=== PATIENT | female | born 1950 | race Caucasian/White ===

== ENCOUNTER → 2020-01-26 | Outpatient (CLI) | payer OTHER | END | disposition home or self-care (01) | LOC: CFH 10:05 | PROVIDERS: ATTEND Internal Medicine | DX: Z12.31 Encounter for screening mammogram for malignant neoplasm of breast (principal); M85.88 Other specified disorders of bone density and structure, other site; N95.8 Other specified menopausal and perimenopausal disorders | CPT/HCPCS: 76641; 77067; 77080 ==

== ENCOUNTER → 2021-01-30 | Outpatient (CLI) | payer OTHER | END | disposition home or self-care (01) | LOC: CFH 11:46 | PROVIDERS: ATTEND Internal Medicine | DX: Z12.31 Encounter for screening mammogram for malignant neoplasm of breast (principal); Z12.39 Encounter for other screening for malignant neoplasm of breast | CPT/HCPCS: 76641; 77063; 77067 ==

== ENCOUNTER 2021-02-18 15:02 | Inpatient (IN) | payer OTHER, MEDICARE ==
[~2021-02-18] VITALS: Ht 154.9 cm; Wt 52.2 kg
--- NOTE | 2021-02-18 15:36 | NUR ---
PT WALKED BACK FROM TRIAGE WITH CHIEF COMPLAINT OF RLQ ABD PAIN FOR FEW DAYS, WITH N/V.
[2021-02-18] MEDS ORDERED: SODIUM CHLORIDE FLUSH 10ML SYR IVF ONE (16:00)
[2021-02-18] MEDS ORDERED: SODIUM CHLORIDE 0.9% 1,000 ML IV ONE (16:00)
[2021-02-18 16:28] LABS: BASOPHILS % (AUTO) 1 % (0-1); EOSINOPHILS % (AUTO) 0 % (1-7); LYMPHOCYTES % (AUTO) 10 % (22-44); MEAN CORPUSCULAR HEMOGLOBIN 29.4 pg (27.0-34.8); MEAN CORPUSCULAR HGB CONC 33.3 g/dL (32.4-35.8); MEAN PLATELET VOLUME 8.8 fL (7.4-10.4); MONOCYTES % (AUTO) 4 % (2-9); NEUTROPHILS % (AUTO) 85 % (42-75); PLATELET COUNT 234 x10^3/uL (130-400); RED BLOOD COUNT 4.99 x10^6/uL (3.82-5.3)
[2021-02-18 16:32] LABS: MICROSCOPIC INDICATED
[2021-02-18 16:38] LABS: ALANINE AMINOTRANSFERASE 21 U/L (12-78); ALBUMIN 4.3 g/dL (3.4-5.0); ANION GAP 5 mmol/L (5-15); CALCIUM 9.4 mg/dL (8.5-10.1); CHLORIDE 104 mmol/L (98-107); CREATININE 0.93 mg/dL (0.55-1.02)
[2021-02-18 16:40] LABS: ALKALINE PHOSPHATASE 80 U/L (45-117); BILIRUBIN,TOTAL 0.5 mg/dL (0.2-1.0); TOTAL PROTEIN 7.2 g/dL (6.4-8.2)
[2021-02-18] MEDS ORDERED: OMNIPAQUE 350 MG/ML, 100ML BOTTLE ONE (17:09)
--- NOTE | 2021-02-18 17:13 | NUR ---
PT BACK FROM CT, STEADY AMBULATION TO BATHROOM.
[2021-02-18] MEDS ORDERED: KETOROLAC 30 MG/1 ML ONE (17:45)
[2021-02-18] MEDS ORDERED: MORPHINE SULFATE 4 MG/ML, 1ML ONE (17:46)
[2021-02-18] MEDS ORDERED: ONDANSETRON 2MG/ML, 2ML ONE (17:46)
[2021-02-18] MEDS ORDERED: ONDANSETRON 2MG/ML, 2ML IVPush ONE (18:00)
[2021-02-18] MEDS ORDERED: KETOROLAC 30 MG/1 ML IVPush ONE (18:00)
[2021-02-18] MEDS ORDERED: MORPHINE SULFATE 4 MG/ML, 1ML IVPush PRN (18:00)
[2021-02-18] MEDS ORDERED: CARB25PO PO (18:31)
--- NOTE | 2021-02-18 19:00 | NUR ---
[facility] AT BEDSIDE
--- NOTE | 2021-02-18 19:26 | NUR ---
PT RESTING IN BED
[2021-02-18] MEDS ORDERED: HYDROcodone/APAP 5/325 TABLET PO PRN (19:30)
[2021-02-18] MEDS ORDERED: BISACODYL 10 MG SUPP PR PRN (19:30)
[2021-02-18] MEDS ORDERED: morphine SULFATE 10 MG/ML, 1ML IVPush PRN (19:30)
[2021-02-18] MEDS ORDERED: hydrALAzine 20 MG/ML, 1ML IVPush PRN (19:30)
[2021-02-18] MEDS ORDERED: ENALAPRILAT 1.25 MG/ML, 2ML IVPush PRN (19:30)
[2021-02-18] MEDS ORDERED: ACETAMINOPHEN 325 MG TABLET PO PRN (19:30)
[2021-02-18] MEDS ORDERED: ONDANSETRON ODT 4 MG PO PRN (19:30)
[2021-02-18] MEDS ORDERED: KETOROLAC 30 MG/1 ML IV PRN (19:30)
[2021-02-18] MEDS ORDERED: ONDANSETRON 2MG/ML, 2ML IVPush PRN (19:30)
[2021-02-18] MEDS ORDERED: POLYETHYLENE GLYCOL 17 GM PACKET PO PRN (19:30)
--- NOTE | 2021-02-18 19:38 | NUR ---
REPORT TO AYDEN BURGESS
[2021-02-18 20:55] VITALS: BP 119/67
[2021-02-18] MEDS ORDERED: CARBAMAZEPINE 100 MG/5 ML PO SCH (21:00)
[2021-02-18] MEDS: LACTATED RINGERS 1,000 ML IV SCH (21:16)
[2021-02-18] MEDS: CARBAMAZEPINE 100 MG TAB.CHEW PO SCH (21:36)
[2021-02-19 01:20] VITALS: BP 109/74
[2021-02-19 05:44] LABS: BASOPHILS % (AUTO) 1 % (0-1); EOSINOPHILS % (AUTO) 1 % (1-7); LYMPHOCYTES % (AUTO) 32 % (22-44); MEAN CORPUSCULAR HEMOGLOBIN 29.5 pg (27.0-34.8); MEAN CORPUSCULAR HGB CONC 33.8 g/dL (32.4-35.8); MEAN PLATELET VOLUME 9.2 fL (7.4-10.4); MONOCYTES % (AUTO) 7 % (2-9); NEUTROPHILS % (AUTO) 60 % (42-75); PLATELET COUNT 181 x10^3/uL (130-400); RED BLOOD COUNT 4.19 x10^6/uL (3.82-5.3); RED CELL DISTRIBUTION WIDTH 13.8 % (9.6-15.2)
[2021-02-19 05:53] LABS: ANION GAP 4 mmol/L (5-15); CALCIUM 8.1 mg/dL (8.5-10.1); CHLORIDE 107 mmol/L (98-107); CREATININE 0.65 mg/dL (0.55-1.02)
[2021-02-19] MEDS: LACTATED RINGERS 1,000 ML IV SCH (06:55)
[2021-02-19] MEDS ORDERED: KETOROLAC 30 MG/1 ML IV PRN (07:30)
[2021-02-19] MEDS ORDERED: morphine SULFATE 10 MG/ML, 1ML IVPush PRN (07:30)
[2021-02-19] MEDS ORDERED: ACETAMINOPHEN 325 MG TABLET PO PRN (09:00)
[2021-02-19] MEDS ORDERED: ONDANSETRON 2MG/ML, 2ML IVPush PRN (09:00)
[2021-02-19] MEDS ORDERED: hydrALAzine 20 MG/ML, 1ML IV PRN (09:00)
[2021-02-19] MEDS ORDERED: SENNA/DOCUSATE TABLET PO SCH (09:00)
[2021-02-19] MEDS ORDERED: FENTANYL PF 100 MCG/2ML IV PRN (09:00)
[2021-02-19] MEDS ORDERED: OXYcodone 5 MG/5 ML ORAL.SOL UDC PO PRN (09:00)
[2021-02-19] MEDS ORDERED: HYDROmorphone 1 MG/ML, 1ML INJ IVPush PRN (09:00)
[2021-02-19] MEDS ORDERED: LABETALOL 5MG/ML, 20ML IV PRN (09:00)
[2021-02-19] MEDS ORDERED: PROMETHAZINE 25 MG/ML, 1ML IVPush PRN (09:00)
[2021-02-19] MEDS ORDERED: EPHEDRINE 50 MG/ML, 1ML IVPush PRN (09:00)
[2021-02-19] MEDS ORDERED: OMNIPAQUE 350 MG/ML, 50 ML BOTTLE ONE (09:12)
[2021-02-19] MEDS: ACETAMINOPHEN 325 MG TABLET PO SCH ×3 (09:30→21:30)
[2021-02-19 09:31] VITALS: BP 110/70
[2021-02-19] MEDS ORDERED: FENTANYL PF 100 MCG/2ML ONE (10:41)
[2021-02-19] MEDS ORDERED: PROPOFOL 10 MG/ML, 20ML ONE (10:52)
[2021-02-19] MEDS ORDERED: ONDANSETRON 2MG/ML, 2ML ONE (10:52)
[2021-02-19] MEDS ORDERED: CEFAZOLIN 1,000 MG ONE (10:52)
[2021-02-19] MEDS ORDERED: DEXAMETHASONE 4 MG/ML, 1ML ONE (10:52)
[2021-02-19] MEDS ORDERED: SODIUM CHLORIDE 0.9% PF 10ML ONE (11:01)
[2021-02-19] MEDS ORDERED: LIDOCAINE-MPF 2% ,5ML ONE (11:01)
[2021-02-19 12:54] VITALS: BP 121/70
[2021-02-19 19:18] VITALS: BP 112/68
[2021-02-19] MEDS ORDERED: LACTATED RINGERS 1,000 ML IV SCH (19:30)
[2021-02-19] MEDS ORDERED: SENNOSIDES 8.6 MG TABLET PO SCH (21:00)
[2021-02-19] MEDS: CARBAMAZEPINE 100 MG TAB.CHEW PO SCH (21:35)
[2021-02-20 01:27] VITALS: BP 121/58
[2021-02-20] MEDS: ACETAMINOPHEN 325 MG TABLET PO SCH ×2 (02:54→09:30)
[2021-02-20 05:03] LABS: BASOPHILS % (AUTO) 0 % (0-1); EOSINOPHILS % (AUTO) 0 % (1-7); LYMPHOCYTES % (AUTO) 20 % (22-44); MEAN CORPUSCULAR HEMOGLOBIN 29.4 pg (27.0-34.8); MEAN CORPUSCULAR HGB CONC 33.7 g/dL (32.4-35.8); MEAN PLATELET VOLUME 9.3 fL (7.4-10.4); MONOCYTES % (AUTO) 7 % (2-9); NEUTROPHILS % (AUTO) 73 % (42-75); PLATELET COUNT 180 x10^3/uL (130-400); RED BLOOD COUNT 4.08 x10^6/uL (3.82-5.3); RED CELL DISTRIBUTION WIDTH 14.2 % (9.6-15.2)
[2021-02-20 06:47] VITALS: BP 110/62
[2021-02-20] MEDS ORDERED: HEPARIN 5,000 UNITS/ML, 1ML SQ SCH (07:30)
[2021-02-20] MEDS ORDERED: SENN-99 PO (10:30)
[2021-02-20] MEDS ORDERED: ACET325T26 PO (10:30)
[2021-02-20] MEDS ORDERED: LACTATED RINGERS 1,000 ML IV SCH (19:30)
== END 2021-02-20 12:20 | disposition home or self-care (01) | DRG 660 ==
LOC: ED 16:10 → EDIP 18:25 → 3N 20:03 → DCLOUNGE 02-20 12:15
PROVIDERS: ADMIT Family Medicine; ATTEND Internal Medicine
PROC: 0T768DZ Dilation of Right Ureter with Intraluminal Device, Via Natural or Artificial Opening Endoscopic (ICD-10-PCS; principal; 2021-02-19 10:45)
DX: N13.2 Hydronephrosis with renal and ureteral calculous obstruction (principal); E87.1 Hypo-osmolality and hyponatremia; K52.89 Other specified noninfective gastroenteritis and colitis; K59.09 Other constipation; Z20.822 Contact with and (suspected) exposure to COVID-19; Z66 Do not resuscitate; Z96.641 Presence of right artificial hip joint; Z80.1 Family history of malignant neoplasm of trachea, bronchus and lung; Z80.42 Family history of malignant neoplasm of prostate; Z82.0 Family history of epilepsy and other diseases of the nervous system; Z87.442 Personal history of urinary calculi; Z87.891 Personal history of nicotine dependence; Z90.710 Acquired absence of both cervix and uterus; Z88.0 Allergy status to penicillin; Z79.899 Other long term (current) drug therapy; Z79.891 Long term (current) use of opiate analgesic; Z79.01 Long term (current) use of anticoagulants; Z98.891 History of uterine scar from previous surgery
CPT/HCPCS: 36415; 74018; 76000; 99285; J3490; 74177; 80048; 80053; 81001; 82330; 85025; 87635; G0378; J0690; J1100; J1885; J2405; J2704; J3010; Q9967; C1769; C2617; J2270; J7030; J7120